=== PATIENT | female | born 1995 ===

== ENCOUNTER 2017-11-25 11:27 | Emergency (ER) | payer OTHER ==
[2017-11-25 11:28] VITALS: BMI 25.0
[2017-11-25 12:03] VITALS: TEMP 99.9; O2SAT 100
[2017-11-25] MEDS ORDERED: Sodium Chloride 0.9% 1,000 ML IV STA (12:17)
--- NOTE | 2017-11-25 12:34 | ED PDOC ---
Arrival/HPI - General Historian: Patient - History of Present Illness Time/Duration: 24 hours Symptom Onset: Sudden Symptom Course: Unchanged Severity Level: 2 Activities at Onset: Rest - General Chief Complaint: GI Problem Time Seen by Provider: 11/25/17 11:59 - History of Present Illness Narrative History of Present Illness (Text): 11/25/17 12:30 CC: cough, fever Patient says she stayed with her partner at this hospital who's admitted for similar symptoms. Patient states she started coughing today and feeling fevers and chills. Patient states her whole body aches and started vomiting x3 episodes this morning. Patient denies diarrhea, constipation, chest pain, shortness of breath, difficulty breathing (Briana Espinoza) Past Medical History - Provider Review Nursing Documentation Reviewed: Yes - Past History Past History: No Previous - Infectious Disease Hx of Infectious Diseases: None - Tetanus Immunization Tetanus Immunization: Up to Date - Psychiatric Hx Psychophysiologic Disorder: No Hx Substance Use: Yes (marijuana) - Anesthesia Hx Anesthesia: No Family/Social History - Physician Review Nursing Documentation Reviewed: Yes Family/Social History: Unknown Family HX Smoking Status: Never Smoked Hx Alcohol Use: No Hx Substance Use: Yes (marijuana) Allergies/Home Meds Allergies/Adverse Reactions: Allergies No Known Allergies Allergy (Verified 11/25/17 11:57) Review of Systems - Physician Review All systems were reviewed & negative as marked: Yes - Review of Systems Constitutional: Fatigue, Fevers Eyes: Normal. absent: Vision Changes, Photophobia, Eye Pain ENT: absent: Hearing Changes, Tinnitus, TMJ Pain Respiratory: Cough. absent: SOB, Sputum, Wheezing Cardiovascular: Palpitations. absent: Chest Pain, Edema Gastrointestinal: Nausea, Vomiting. absent: Abdominal Pain, Constipation, Diarrhea, Appetite Changes, Hematochezia, Hematemesis, Anorexia, Food Intolerance Genitourinary Female: Normal. absent: Dysuria, Frequency, Hematuria Musculoskeletal: Arthralgias. absent: Back Pain, Neck Pain Skin: absent: Rash, Pruritis, Skin Lesions, Laceration Neurological: absent: Headache, Dizziness, Focal Weakness Endocrine: absent: Diaphoresis, Polyuria, Polydipsia Hemo/Lymphatic: absent: Adenopathy, Easy Bleeding, Easy Bruising Psychiatric: absent: Anxiety, Depression, Suicidal Ideation Physical Exam Temperature: Afebrile Blood Pressure: Normal Pulse: Tachycardic Respiratory Rate: Normal Appearance: Positive for: Comfortable, Ill-Appearing Pain Distress: Mild Mental Status: Positive for: Alert and Oriented X 3 - Systems Exam Head: Present: Atraumatic, Normocephalic Pupils: Present: PERRL Extroacular Muscles: Present: EOMI Conjunctiva: Present: Normal Ears: Present: Normal. No: NORMAL TM, Erythema, Normal Canal Mouth: Present: Dry, Normal Lips, Normal Tounge. No: Moist Mucous Membranes, Drooling, Trismus Pharnyx: Present: Normal. No: ERYTHEMA, EXUDATE, TONSILS ENLARGED Nose (External): Present: Atraumatic. No: Abrasion, Contusion, Laceration Neck: Present: Normal Range of Motion, Trachea Midline. No: MIDLINE TENDERNESS , JVD Respiratory/Chest: Present: Clear to Auscultation, Good Air Exchange. No: Respiratory Distress, Accessory Muscle Use, Wheezes, Decreased Breath Sounds, Rales, Retracting, Rhonchi, Tachypneic, Tender to Palpation Cardiovascular: Present: Regular Rate and Rhythm, Normal S1, S2 Abdomen: Present: Normal Bowel Sounds. No: Tenderness, Distention, Peritoneal Signs, Rebound, Guarding, McBurney's Point Tender Back: Present: Normal Inspection. No: CVA Tenderness, Midline Tenderness, Paraspinal Tenderness, Pain with Leg Raise, Decubitus Ulcer Upper Extremity: Present: Normal Inspection, Normal ROM, NORMAL PULSES, Capillary Refill < 2s. No: Cyanosis, Edema Lower Extremity: Present: Normal Inspection, NORMAL PULSES, Normal ROM, Capillary Refill < 2 s. No: Edema Neurological: Present: GCS=15, CN II-XII Intact, Speech Normal, Motor Func Grossly Intact, Normal Sensory Function, Norm Deep Tendon Reflexes Skin: Present: Warm, Dry, Rashes, Normal Color. No: Diaphoretic, Abscess Lymphatic: No: Cervical Adenopathy Psychiatric: Present: Alert, Oriented x 3, Normal Insight, Normal Concentration Vital Signs Temp Pulse Resp BP Pulse Ox 11/25/17 13:37 91 H 18 117/68 100 11/25/17 11:58 99.9 F H 111 H 19 120/70 100 Medical Decision Making ED Course and Treatment: 11/25/17 16:05 seen with resident. influenza like symptoms x 1 day empric tx. well appearing vital stable. labs unremarkable. (Eliceo Holland) - Lab Interpretations Lab Results: 11/25/17 12:23 11/25/17 12:23 Lab Results 11/25/17 12:23: Sodium 140, Potassium 3.8, Chloride 99, Carbon Dioxide 25, Anion Gap 20, BUN 12, Creatinine 0.9, Est GFR ( Amer) > 60, Est GFR (Non- Af Amer) > 60, Random Glucose 106, Calcium 9.9, Magnesium 1.8, Total Bilirubin 0.8, AST 29, ALT 33, Alkaline Phosphatase 57, Total Protein 8.8 H, Albumin 5.0 H , Globulin 3.8, Albumin/Globulin Ratio 1.3 11/25/17 12:23: WBC 10.8, RBC 4.79, Hgb 14.2, Hct 42.9, MCV 89.6, MCH 29.6, MCHC 33.1, RDW 12.4, Plt Count 269, MPV 9.3, Gran % 87.0 H, Lymph % (Auto) 3.2 L , [place] % (Auto) 9.0 H, Eos % (Auto) 0.5 L, Baso % (Auto) 0.3, Gran # 9.37 H, Lymph # (Auto) 0.3 L, [place] # (Auto) 1.0 H, Eos # (Auto) 0.1, Baso # (Auto) 0.03 , Neutrophils % (Manual) 87 H, Lymphocytes % (Manual) 4 L, Atypical Lymphs % 1 H , Monocytes % (Manual) 4, Eosinophils % (Manual) 4 H, Platelet Evaluation Normal 11/25/17 12:00: Influenza Typ A,B (EIA) Negative for flu a/b - Medication Orders Current Medication Orders: Discontinued Medications Acetaminophen (Tylenol 325mg Tab) 650 mg PO STAT STA Stop: 11/25/17 12:26 Last Admin: 11/25/17 12:49 Dose: 650 mg MAR Pain/Vitals Document 11/25/17 12:49 GMD (Rec: 11/25/17 12:[address] [facility] [place]-[id number]) Pain Reassessment Is This A Pain ReAssessment? No Presence of Pain Presence of Pain Yes Location Pain Location Body Site Generalized Sodium Chloride (Sodium Chloride 0.9%) 1,000 mls @ 999 mls/hr IV .Q1H1M STA Stop: 11/25/17 13:17 Last Admin: 11/25/17 12:33 Dose: 999 mls/hr eMAR Start Stop Document 11/25/17 12:33 GMD (Rec: 11/25/17 12:[address] [facility] [id number]) Intravenous Solution Start Date 11/25/17 Start Time 12:33 End Date 11/25/17 End time 13:34 Total Infusion Time 61 Ondansetron HCl (Zofran Inj) 4 mg IVP STAT STA Stop: 11/25/17 12:23 Last Admin: 11/25/17 12:32 Dose: 4 mg IVP Administration Document 11/25/17 12:32 GMD (Rec: 11/25/17 12:[address] [facility] [id number]) Charges for Administration # of IVP Administrations 1 Disposition/Present on Arrival - Present on Arrival Any Indicators Present on Arrival: No History of DVT/PE: No History of Uncontrolled Diabetes: No Urinary Catheter: No History of Decub. Ulcer: No History Surgical Site Infection Following: None - Disposition Have Diagnosis and Disposition been Completed?: Yes Disposition Time: 13:33 Patient Plan: Discharge - Disposition Diagnosis: Viral URI Disposition: HOME/ ROUTINE Condition: IMPROVED Additional Instructions: follow up with primary care doctor if symptoms worsen. try to exercise precaution by wearing a mask to not infect others Prescriptions: Ondansetron HCl [Zofran] 8 mg PO Q6H PRN 4 Days tablet PRN Reason: Nausea/Vomiting Oseltamivir Phosphate [Tamiflu] 75 mg PO BID #10 capsule Forms: Anonym[employer] ([employer])
[2017-11-25 12:44] LABS: BASO # 0.03 K/mm3 (0.0-2.0); BASO % 0.3 % (0.0-3.0); EOS # 0.1 (0.0-0.7); EOS % 0.5 % (1.5-5.0); GRAN # 9.37 (1.4-6.5); HEMOGLOBIN 14.2 g/dL (12.0-16.0); LYMPH # 0.3 (1.2-3.4); LYMPH % 3.2 % (22.0-35.0); MEAN CELL VOLUME 89.6 fl (80.0-105.0); MEAN CORPUSCULAR HEMOGLOBIN 29.6 pg (25.0-35.0); MEAN CORPUSCULAR HGB CONC 33.1 g/dl (31.0-37.0); MEAN PLATELET VOLUME 9.3 fl (7.0-11.0); PLATELET COUNT 269 10^3/uL (120.0-450.0); RBC 4.79 10^6/uL (3.5-6.1); RED CELL DISTRIBUTION WIDTH 12.4 % (11.5-14.5); WHITE BLOOD COUNT 10.8 10^3/ul (4.5-11.0)
[2017-11-25 12:51] LABS: ALB/GLOB RATIO 1.3 (1.1-1.8); ALT/SGPT 33 U/L (7-56); AST/SGOT 29 U/L (14-36); BLOOD UREA NITROGEN 12 mg/dL (7-21); CALCIUM 9.9 mg/dL (8.4-10.5); GFR AFRICAN-AMERICAN > 60; GFR NON-AFRICAN AMERICAN > 60; MAGNESIUM 1.8 mg/dL (1.7-2.2)
[2017-11-25 13:37] VITALS: BP 117/68; PULSE 91; RESP 18
[2017-11-25 13:59] LABS: ATYPICAL LYMPHOCYTE 1 % (0.0-0.0); EOSINOPHIL 4 % (0.0-3.0); LYMPHOCYTE 4 % (22.0-35.0); MONOCYTE 4 % (1.0-6.0); NEUTROPHIL 87 % (50.0-70.0); PLATELET ESTIMATE NORMAL (NORMAL)
== END 2017-11-25 13:55 | disposition home or self-care (01) ==
LOC: ED 11:27
DX: J06.9 Acute upper respiratory infection, unspecified (principal)
CPT/HCPCS: 80053; 83735; 85025; 87804; 96361; 96374; 99284; J2405; J7040